=== PATIENT | male | born 1945 | race Caucasian/White ===

== ENCOUNTER 2019-06-20 10:52 | Observation (INO) | payer MEDICARE ==
[~2019-06-20] VITALS: Ht 152.4 cm; Wt 111.4 kg
--- NOTE | ~2019-06-20 | HEMODYNAMI ---
PATIENT:BANDAR LUND MEDICAL RECORD: [id number] : 49 LOCATION:D[facility] ADMISSION DATE: 06/20/19 Generatedon:06/20/201914:24 Patient name: BANDAR LUND Patient #: [id number] SSN: : 1945 Date of study: 06/20/2019 Page: Of Hemodynamic Procedure Report Patient Data Patient Demographics Procedure consent was obtained First Name: BANDAR Gender: Male Last Name: KEVON : 1945 Middle Initial: W Age: 74 year(s) Patient #: [id number] Race: Additional ID: [id number] Contact details [address]: [address] [place] [address] State: [place] City: [place] Zip code: [address] Admission Admission Data Admission Date: 06/20/2019 Admission Time: 10:52 Lab Results Lab Result Date: 06/20/2019 Lab Result Time: 0:00 CBC Name Units Result Min Max Hemoglobin g/dl 13.5 --(*---)-- 13.5 17.5 Procedure Procedure Types Cath Procedure Diagnostic Procedure PPM/ICD PPM Dual Implant Procedure Description Procedure Date Procedure Date: 06/20/2019 Procedure Start Time: 13:47 Procedure End Time: 14:23 Procedure Staff Name Function Tobin Salgado MD Performing Physician Alexi Boyer MD Assisting physician Dannie Shen RN Nurse Tu Nevarez RT Monitor Matthew Kincaid RT Scrub Guillermina Crespo RN [employer] Procedure Data Cath Procedure Fluoroscopy Diagnostic fluoroscopy Total fluoroscopy Time: 2.2 time: 2.2 min min Diagnostic fluoroscopy Total fluoroscopy dose: dose: 110.73 mGy 110.73 mGy Estimated blood loss: 10 ml Procedure Medications Medication Administration Route Dosage 0.9% NaCl 100 ml/hr Oxygen etCO2 Nasal cannula 2 l/min Lidocaine 1% added to field 20 Ancef (1Gm/50ml NS) I.V.P.B 1 g Ancef Irrigation Topical 1 g (1gm/500ml NS) Versed I.V. 2 mg Fentanyl I.V. 50 mcg Versed I.V. 2 mg Fentanyl I.V. 50 mcg Hemodynamics Rest HGB: 13.5 (g/dl) Heart Rate: 57 (bpm) Snapshots Pre Cath Intra NCS Post Cath Vital Signs Time Heart Resp SPO2 etCO2 NIBP (mmHg) Rhythm Pain Sedation Rate (ipm) (%) (mmHg) Status Level (bpm) 13:22:16 51 16 96 24.7 136/77(101) SB 0 (11) 10(A) , No pain 13:28:35 53 17 97 28.4 129/77(108) SB 0 (11) 10(A) , No pain 13:33:21 45 16 98 2.2 119/69(93) SB 0 (11) 10(A) , No pain 13:45:37 41 15 97 11.2 138/67(107) SB 0 (11) 9(A) , No pain 13:49:53 159 16 93 32.2 141/84(102) SB 0 (11) 9(A) , No pain 13:55:00 46 16 89 22.5 102/68(87) SB 0 (11) 9(A) , No pain 13:59:00 96 16 92 25.4 107/72(86) SB 0 (11) 9(A) , No pain 14:03:01 136 16 99 29.2 107/83(97) SB 0 (11) 9(A) , No pain 14:08:06 47 17 99 20.9 148/72(111) SB 0 (11) 10(A) , No pain 14:12:27 59 16 99 26.2 144/77(107) Paced 0 (11) 10(A) , No pain 14:16:43 60 17 99 32.2 142/81(113) Paced 0 (11) 10(A) , No pain 14:20:57 66 16 98 28.4 145/91(108) Paced 0 (11) 10(A) , No pain Medications Time Medication Route Dose Verified Delivered Reason Notes Effecti veness by by 13:25:38 0.9% NaCl 100 Tobin Guillermina used for ml/hr NaomiAndrew Crespo procedure MD MARTIN 13:25:44 Oxygen etCO2 2 Tobin Sarmiento used for Nasal l/min NaomiAndrew Crespo procedure cannula MD MARTIN 13:25:57 Lidocaine added 20ml Alexi Truong for local 1% to vial Luciano Boyer MD anesthetic field x 2 13:26:05 Ancef I.V.P.B 1 g Alexi Truong used for (1Gm/50ml Luciano Boyer MD procedure NS) 13:26:14 Ancef Topical 1 g Quaker Quaker used for Irrigation Luciano Boyer MD procedure (1gm/500ml NS) 13:44:45 Versed I.V. 2 mg Tobin Guillermina for NaomiAndrew Crespo sedation RN 13:44:51 Fentanyl I.V. 50 Tobin Guillermina for [facility] Andrew Crespo sedation RN 13:51:03 Versed I.V. 2 mg Tobin Guillermina for NaomiAndrew Crespo sedation RN 13:51:07 Fentanyl I.V. 50 Tobin Guillermina for [facility] Andrew Crespo sedation value stream leader Log Time Note 13:03:49 Procedure Status PPM/ Gen Change/ Lead Revision/ Temp. 13:03:55 Tu Nevarez RT(R) (CV) sent for patient. Start room use. 13:03:58 Time tracking: Regular hours (M-F 7:00 - 5:00) 13:04:03 Plan of Care:Hemodynamics will remain stable., Cardiac rhythm will remain stable., Comfort level will be maintained., Respiratory function will remain adequate., Patient/ family verbilizes understanding of procedure., Procedure tolerated without complication., Recovers from procedure without complications.. 13:08:58 H&P Date Dictated: 06/17/2019 Within 30 days and on chart., H&P Addendum completed by physician on day of procedure. (MUST COMPLETE FOR ALL OUTPATIENTS). 13:10:14 Patient received from Pre/Post Procedure Room to CCL 3 Alert and oriented. Tansferred to table in Supine position. 13:10:17 Signed procedure consent form obtained from patient. 13:10:18 Warm blankets applied, and gene hugger turned on for patient comfort. 13:10:19 Correct patient and procedure confirmed by team. 13:10:19 ECG and BP/O2 sat monitors applied to patient. 13:16:23 Vital chart was started 13:17:50 Baseline sample Acquired. 13:20:11 Rhythm: sinus bradycardia 13:20:14 Full Disclosure recording started 13:20:17 Pre-procedure instructions explained to patient. 13:20:18 Pre-op teaching completed and patient verbalized understanding. 13:20:50 Family in waiting room. 13:20:52 Patient NPO since Midnight. 13:25:19 ALLERGIES - DIOVAN, LISINIPRIL, SULFA 13:25:38 0.9% NaCl 100 ml/hr was administered by Guillermina Crespo RN; used for procedure; 13:25:44 Oxygen 2 l/min etCO2 Nasal cannula was administered by Guillermina Crespo RN; used for procedure; 13:25:45 Is patient on blood thinner?No 13:25:50 Patient diabetic? No. 13:25:56 ----Pre-sedation anethsthesia assessment.---- 13:25:57 Lidocaine 1% 20ml vial x 2 added to field was administered by Alexi Boyer MD; for local anesthetic; 13:25:59 Previous problem with sedation/anesthesia? No ? 13:26:03 Snore? Yes 13:26:05 Ancef (1Gm/50ml NS) 1 g I.V.P.B was administered by Alexi Boyer MD; used for procedure; 13:26:05 Sleep apnea? Yes 13:26:07 Deviated septum? No 13:26:08 Opens mouth fully? Yes 13:26:09 Sticks out tongue? Yes 13:26:13 Airway obstruction? No ? 13:26:14 Ancef Irrigation (1gm/500ml NS) 1 g Topical was administered by Alexi Boyer MD; used for procedure; 13:26:19 Dentures? Yes OUT 13:26:34 IV patent on arrival in left forearm with 0.9% NaCl at [facility]. 13:27:03 Lab Result : Hemoglobin 13.5 g/dl 13:27:06 Lab results completed and on chart. 13:27:18 Left chest area was prepped with chlora-prep and draped in sterile fashion 13:27:24 Alarms reviewed by RSanchez Gilbert 13:30:51 Medtronic policy services representative SIGRID HELTON present for procedure. 13:31:31 Pre sharps counted by scrub and verified by RN: Sutures: 7; Sponges: 5; Stick needles: 2; Skin needles: 2; Blade: 1; Cautery: 1 13:31:39 Grounding pad site Left thigh. 13:32:53 Cautery Pushbutton Pencil opened to sterile field. 13:32:54 Mepilex Dressing (660995) opened to sterile field. 13:32:55 PEELAWAY 7FR Safe Sheath (SU7) opened to sterile field. 13:32:56 PEELAWAY 7FR Safe Sheath (SU7) opened to sterile field. 13:32:56 Cautery Tip Realtime Reporter opened to sterile field. 13:34:[address] Generator [id number] opened to sterile field. 13:34:21 Use device set LUCIANO PPM 13:34:25 2-0 Ticron Multipack ([id number]) opened to sterile field. 13:34:26 3-0 Vicryl Single Pack [id number] opened to sterile field. 13:34:26 5-0 Monocryl PS2 [id number] opened to sterile field. 13:34:33 Medtronic 4074-52 PPM Lead opened to sterile field. 13:34:33 Medtronic 4574-45 PPM Lead opened to sterile field. 13:43:21 Physician arrived 13:43:22 --------ALL STOP TIME OUT------ 13:43:23 Final Timeout: patient, procedure, and site verified with staff and physician. All members of the team are in agreement. 13:43:30 Left chest site verified by team. 13:43:43 Fire Safety Assessment: A--An alcohol-based skin anteseptic being used preoperatively., B--The operative or invasive procedure is being performed above the xiphoid process or in the oropharynx., C--Open oxygen or nitrous oxide is being used., D--An ESU, laser, or fiber-optic light is being used. 13:43:49 Physical assessment completed. ASA score P 2 - A patient with mild systemic disease as per Tobin Salgado MD. 13:43:55 Sedation plan: IV Moderate Sedation Medication:Versed, Fentanyl 13:44:45 Versed 2 mg I.V. was administered by Guillermina Crespo RN; for sedation; 13:44:51 Fentanyl 50 mcg I.V. was administered by Guillermina Crespo RN; for sedation; 13:45:45 Procedure started. 13:47:23 Grounding pad site free from injury. 13:47:37 Lidocaine 2% was administered to left subclavicular area by Alexi oByer MD . 13:48:59 Incision made to left subclavicular area. 13:50:26 Generator pocket made/opened. 13:51:03 Versed 2 mg I.V. was administered by Guillermina Crespo RN; for sedation; 13:51:07 Fentanyl 50 mcg I.V. was administered by Guillermina Crespo RN; for sedation; 13:53:55 Left subclavian vein accessed with 7Fr Peel Away Sheath. 13:55:52 Left subclavian vein accessed with 7Fr Peel Away Sheath. 13:56:06 Ventricular lead inserted and advanced. 13:56:08 Peel-a-way sheath was split and removed. 13:56:52 Atrial lead inserted and advanced. 13:56:54 Peel-a-way sheath was split and removed. 13:57:49 Ventricular lead positioned. 13:59:13 Ventricular lead tested. 13:59:47 Atrial lead positioned. 14:00:14 Atrial lead tested. 14:02:40 Atrial lead repositioned. 14:02:44 Atrial lead tested. 14:06:58 Atrial lead repositioned. 14:07:44 Atrial lead tested. 14:08:12 PPM Dual was attached to lead(s) and inserted into pocket. 14:08:48 Device pocket was irrigated with Ancef. 14:11:02 Use device set LUCIANO PPM 14:11:25 Ventricular lead attachment was completed with 2-0 ticron. 14:11:33 Atrial lead attachment was completed with 2-0 ticron. 14:12:16 Subcutaneous closure was completed with 3-0 vicryl. 14:14:24 Skin closure was completed with 5-0 monocryl. 14:17:18 Procedure ended.(Physican Out) 14:17:47 Fluoroscopy time 02.20 minutes. 14:18:00 Fluoroscopy dose: 110.73 mGy 14:18:00 Flurop Dose total: 110.73 14:18:40 Dose Area Product 1324.88 mGy/cm. 14:19:21 Immobilizer Extra Large opened to sterile field. 14:21:28 Post sharps counted by scrub and verified by RN: Sutures: 7; Sponges: 5; Stick needles: 2; Skin needles: 2; Blade: 1; Cautery: 1 14:22:10 Post-op/insertion site Left Chest area dressed using a Mepilex dressing. 14:22:18 Post-procedure physical assessment completed. ASA score P 2 - A patient with mild systemic disease as per Tobin Salgado MD. 14:22:25 Post procedure rhythm: paced 14:22:41 Estimated blood loss: 10 ml 14:22:50 Post procedure instruction explained to patient.Patient verbalizes understanding. 14:22:51 Patient needs reinforcement of post procedure teaching. 14:22:59 Procedure and supply charges have been captured, reviewed, submitted and are correct. 14:23:01 Vital chart was stopped 14:23:01 See physician's report for complete and final results. 14:23:07 Report given to Med II. 14:23:18 Patient transfered to Med II with Bed. 14:23:26 Procedure ended. 14:23:26 Full Disclosure recording stopped 14:23:29 End room use (Document Last) Device Usage Item Name Manufacture Quantity Catalog Hospital Part Current Minima l Lot# / Number Charge Number Stock Stock Serial# Code Cautery Microtek 1 [id number] 5 Pushbutton [employer] Pencil Mepilex Cardinal 1 [id number] [id number] [id number] 5 [facility] ([id number]) PEELAWAY 7FR Microtek 2 SU7 [id number] [id number] 10 Safe Sheath [employer] (SU7) Cautery Tip Microtek 1 [id number] [id number] [id number] [id number] 5 Realtime Reporter [employer] Medtronic Medtronic 1 W1DR01 [id number] [id number] EXP Generator 06-09-20 W1DR01 2-0 Ticron Ethicon 2 [id number] 797368 87554 221767 5 Multipack ([id number]) 3-0 Vicryl Ethicon 1 [id number] 818237 655624 374411 5 Single Pack [id number] 5-0 Monocryl Ethicon 1 Y495G 797201 229999 574275 5 PS2 Y495G Medtronic Medtronic 1 4074-52 984306 390148 448066 5 [id number] 4074-52 PPM EXP Lead 10-18-20 Medtronic Medtronic 1 4574-45 [id number] [id number] [id number] 5 [id number] 4574-45 PPM EXP Lead 09-26-20 Immobilizer Cardinal 1 [id number] [id number] 5 Extra Large Health Signature Audit [place] Stage Time Signature Unsigned Intra-Procedure 06/20/2019 Tu Nevarez 2:24:09 PM RT(R) (CV) Signatures Performing Physician : Signature : Tobin Salgado MD Date : Time : Nurse : Dannie Shen RN Signature : Date : Time : Monitor : Tu Nevarez RT Signature : Date : Time : [address] [place] [address]
[2019-06-20] MEDS ORDERED: TENORMIN25 MG PO (11:15)
[2019-06-20] MEDS ORDERED: PROTONIX40 MG PO (11:15)
[2019-06-20] MEDS ORDERED: BUMEX2 MG PO (11:15)
[2019-06-20] MEDS ORDERED: COZAAR100 MG PO (11:16)
[2019-06-20 11:32] VITALS: BP 149/79; BMI 37.3
[2019-06-20 11:55] LABS: HEMATOCRIT 39.6 % (42.0-54.0); HEMOGLOBIN 13.5 g/dL (13.5-17.5); MCH 29.3 pg (26.0-34.0); MCHC 34.1 g/dL (31.0-37.0); MCV 86.1 fL (80.0-100.0); MEAN PLATELET VOLUME 9.3 fL (7.4-10.4); RBC 4.6 10x6/uL (4.20-6.10); RDW 13.9 % (11.5-14.5); WBC 4.5 10x3/uL (4.8-10.8)
[2019-06-20 12:09] LABS: ANION GAP 12.9 mmol/L (8-16); CALCIUM 8.9 mg/dL (8.5-10.1); CARBON DIOXIDE 28.2 mmol/L (21.0-32.0); CREATININE - SERUM 1.2 mg/dL (0.6-1.3); POTASSIUM - SERUM 3.1 mmol/L (3.5-5.1)
[2019-06-20 12:51] LABS: APTT 37.8 SECONDS (22.8-39.4); INR 1.11 (0.85-1.17); PROTIME 13.8 SECONDS (11.6-15.0)
--- NOTE | 2019-06-20 14:52 | NUR ---
TRANSFERED FROM [facility]. VS WNL. LEFT CHEST DRSG CDI. LEFT ARM IN SLING. AT BS. CALL LIGHT IN REACH. WILL CONT. PLAN OF CARE.
--- NOTE | 2019-06-20 19:07 | NUR ---
RESUMING PATIENT CARE. PATIENT IS ALERT AND ORIENTED, RESTING COMFORTABLY IN BED. DRESSING TO LEFT CHEST C/D/I. NO S/S OF DISTRESS. NO C/O PAIN. PATIENT DENIES NEEDS. CALL LIGHT WITHIN REACH. WILL CPOC.
[2019-06-20 20:00] VITALS: BP 123/67
--- NOTE | 2019-06-20 22:31 | NUR ---
PATIENT RESTING COMFORTABLY IN BED. RESPIRATIONS ARE EVEN AND UNLABORED. NO S/S OF DISTRESS. NO C/O PAIN. CALL LIGHT WITHIN REACH. WILL CPOC.
[2019-06-21] VITALS: BP 118/79
[2019-06-21 04:00] VITALS: BP 125/68
[2019-06-21 04:12] VITALS: Ht 152.4 cm; Wt 111.4 kg
[2019-06-21 09:27] VITALS: BP 121/69
--- NOTE | 2019-06-21 09:27 | NUR ---
IV AND TELEMETRY DCD. DC PLANS GIVEN. UNDERSTANDING VOICED.
--- NOTE | 2019-06-21 09:42 | NUR ---
ESCORTED TO CAR BY W/C.
== END 2019-06-21 09:43 | disposition home or self-care (01) ==
LOC: D.CATH 10:52 → D.M2 14:29 → D.CATH 15:03 → OBSVTIME 15:05 → D.M2 06-21 09:43
PROVIDERS: ADMIT Internal Medicine Interventional Cardiology; ATTEND Internal Medicine Interventional Cardiology
DX: I49.5 Sick sinus syndrome (principal)